=== PATIENT | female | born 1990 | race Two or more races ===

== ENCOUNTER 2024-02-15 14:41 | Emergency (ER) | payer OTHER ==
[~2024-02-15] VITALS: Ht 175.3 cm; Wt 154.2 kg
[2024-02-15] MEDS ORDERED: JARDIANCE25 MG PO (15:36)
[2024-02-15] MEDS ORDERED: ACTOS15 MG PO (15:37)
[2024-02-15] MEDS ORDERED: PROVERA2.5 MG PO (15:37)
[2024-02-15] MEDS ORDERED: FOLIC ACID0.8 M1 PO (15:37)
[2024-02-15] MEDS ORDERED: TRULICITY4.5 MG/0.5 SQ (15:37)
[2024-02-15] MEDS ORDERED: KETOROLAC TROMETHAMINE 60 MG VIAL IM ONE (16:30)
[2024-02-15 18:10] LABS: HEMATOCRIT 41.1 % (36.0-45.00); HEMOGLOBIN 13.1 g/dL (12.0-15.00); MEAN CELL VOLUME 72.4 fL (80.00-100.00); MEAN CORPUSCULAR HEMOGLOBIN 23.1 pg (27.00-32.0); MEAN CORPUSCULAR HGB CONC 31.9 g/dl (32.0-36.0); PLATELET COUNT 340 K/uL (150-450); RED BLOOD COUNT 5.68 M/uL (4.00-6.00); RED CELL DISTRIBUTION WIDTH 16.1 % (11.5-14.5)
[2024-02-15 18:24] LABS: URINE APPEARANCE Clear; URINE BILIRRUBIN Negative (NEGATIVE); URINE BLOOD Negative; URINE COLOR Yellow; URINE KETONE Negative (NEGATIVE); URINE LEUKOCYTE Negative; URINE NITRATE Negative; URINE PROTEIN Negative (NEGATIVE); URINE UROBILINOGEN 0.2 E.U./dl
[2024-02-15 18:28] LABS: URINE BACTERIA 2679.7 uL (0.0-1933); URINE EPITHELIAL CELLS 76.5 uL (0.0-38.8); URINE RBC 2.5 uL (0.0-20.8); URINE WBC 89.6 uL (0.0-23.2)
[2024-02-15 18:46] LABS: ALBUMIN 3.6 gm/dL (3.4-5.0); BILIRUBIN TOTAL 0.23 mg/dL (0.3-1.2); CALCIUM 9.5 mg/dL (8.5-10.1); CREATININE SERUM 0.6 mg/dL (0.55-1.02); GFR 116.6; GLOBULINA 4.7 G/DL (2.4-3.5); POTASSIUM 3.67 mEq/L (3.5-5.1); TOTAL PROTEIN 8.3 gm/dL (6.4-8.2)
[2024-02-15 18:50] LABS: URINE CAST 0.15 uL (0.0-1.40); URINE GLUCOSE >=1000 MG/DL (NEGATIVE); URINE YEAST MODERATE /hpf
[2024-02-15] MEDS ORDERED: AMOX1TAB5 PO (19:22)
[2024-02-15] MEDS ORDERED: PROTONIX40 MG PO (19:22)
== END 2024-02-15 19:29 | disposition home or self-care (01) ==
LOC: ER 14:42
PROVIDERS: General Practice
DX: R50.9 Fever, unspecified (principal); T81.9XXA Unspecified complication of procedure, initial encounter

== ENCOUNTER 2024-10-23 08:26 | Outpatient (CLI) | payer OTHER ==
[~2024-10-23 08:26] MED LIST: ACTOS15 MG PO; AMOX1TAB5 PO; FOLIC ACID0.8 M1 PO; JARDIANCE25 MG PO; PROTONIX40 MG PO; PROVERA2.5 MG PO; TRULICITY4.5 MG/0.5 SQ
== END 2024-10-23 08:36 | disposition home or self-care (01) ==
LOC: SONOGRAMA 08:26
PROVIDERS: ATTEND Obstetrics & Gynecology
DX: N84.0 Polyp of corpus uteri (principal)